=== PATIENT | male | born 1965 | race Caucasian/White ===

== ENCOUNTER 2016-09-01 14:13 | Emergency (ER) | payer OTHER ==
[~2016-09-01 14:13] MED LIST: ORPH100T PO; TYLE3 PO
[2016-09-01 14:16] VITALS: BP 144/103; PULSE 90; RESP 20; TEMP 98.2; O2SAT 96
[2016-09-01] MEDS ORDERED: ONDANSETRON ODT 4 MG TAB PO ONE (14:45)
[2016-09-01] MEDS ORDERED: KETOROLAC TROMETHAMINE 60 MG/2 ML (IM) VIAL IM ONE (14:45)
[2016-09-01] MEDS ORDERED: ACETAMINOPHEN/HYDROcodone 325 MG/5 MG TAB PO ONE (14:45)
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
[2016-09-01] MEDS ORDERED: IBUP-232 PO (15:46)
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
[2016-09-01 16:02] VITALS: BP 156/102
== END 2016-09-01 16:03 | disposition home or self-care (01) ==
LOC: PHEFT 14:13
DX: M54.2 Cervicalgia (principal); V53.5XXA Driver of pick-up truck or van injured in collision with car, pick-up truck or van in traffic accident, initial encounter; Y92.410 Unspecified street and highway as the place of occurrence of the external cause
CPT/HCPCS: 70450; 71010; 72072; 72125; 96372; 99284; J1885